=== PATIENT | female | born 1990 | race Caucasian/White ===

== ENCOUNTER 2021-06-27 11:20 | Outpatient (REF) | payer OTHER, SELFPAY ==
[2021-06-28 14:25] LABS: BV Int Neg Control Negative (Negative); BV Int Pos Control Positive (Positive)
[2021-06-28 14:59] LABS: CT PCR NOT DETECTED (Not Detect.); NG PCR NOT DETECTED (Not Detect.)
== END 2021-06-27 11:21 | disposition home or self-care (01) ==
LOC: HO.LAB 11:20
PROVIDERS: PCP Internal Medicine; Visit Provider Advanced Practice Midwife
DX: N92.0 Excessive and frequent menstruation with regular cycle (principal); N91.1 Secondary amenorrhea; N83.9 Noninflammatory disorder of ovary, fallopian tube and broad ligament, unspecified; E66.01 Morbid (severe) obesity due to excess calories; Z68.35 Body mass index [BMI] 35.0-35.9, adult; Z87.42 Personal history of other diseases of the female genital tract
CPT/HCPCS: 81025; 87086; 87480; 87491; 87510; 87591; 87660

== ENCOUNTER 2021-07-01 12:07 | Outpatient (REF) | payer OTHER, SELFPAY ==
[2021-07-02 03:44] LABS: Syphilis Screen Nonreactive (Nonreactive)
[2021-07-02 03:48] LABS: HIV AB/AG Nonreactive (Nonreactive); HIV Num 1 0.08 S/CO (0.00-0.99)
[2021-07-02 04:01] LABS: HBsAGNum1 0.21 S/CO (0.00-0.99); Hepatitis B Surface Antigen Negative (Negative); ~HepC Num1 0.07 S/CO (0.00-0.79); ~Hepatitis C Antibody Nonreactive (Nonreactive)
== END 2021-07-01 12:08 | disposition home or self-care (01) ==
LOC: HO.LAB 12:07
PROVIDERS: PCP Internal Medicine; Visit Provider Advanced Practice Midwife
DX: Z20.2 Contact with and (suspected) exposure to infections with a predominantly sexual mode of transmission (principal)
CPT/HCPCS: 36415; 86780; 86803; 87340; 87389

== ENCOUNTER 2021-07-11 15:44 | Outpatient (REF) | payer OTHER, SELFPAY ==
--- NOTE | ~2021-07-11 | US_ITS ---
EXAMINATION: US PELVIS CLINICAL INFORMATION: Amenorrhea, menorrhagia. History of PCOS. COMPARISON: Ultrasound 03/13/2019. TECHNIQUE: Ultrasound of the pelvis is performed using both transabdominal and transvaginal transducers along with Doppler. Transvaginal imaging is performed due to inadequate visualization transabdominally. FINDINGS: Uterus: The uterus is retroverted and measures 8.7 cm in length, 3.8 cm in AP and 5.0 cm in transverse dimension. The double wall endometrial thickness is ill-defined but measures 1.9 cm. The uterus is smooth in contour and has normal myometrial echogenicity. No visible fibroid. There are small multiple nabothian cysts in the cervix. Adnexa: Both ovaries are visualized. There is normal color flow to the adnexa. There is no ovarian torsion. There is no pelvic ascites or fluid collection. Right ovary measures 4.1 x 2.4 x 3.0 cm and volume 15.6 mL. There are multiple small anechoic cysts seen. Previously right ovary measured 3.0 x 2.7 x 2.6 cm. No adnexal lesions seen. Left ovary measures 3.2 x 2.5 x 2.5 cm and volume 10.2 mL. There are multiple small anechoic cysts seen. Previously left ovary measured 3.4 x 2.6 x 3.1 cm. US/US pelvic and transvaginal IMPRESSION: Multiple nabothian cysts in the cervix. The uterus is unremarkable. There is ill-defined endometrial thickness of 1.9 cm; still normal for patient's age. Multiple small anechoic cysts, question polycystic disease. There is no free fluid in the cul-de-sac.
== END 2021-07-11 15:45 | disposition home or self-care (01) ==
LOC: HO.HMGCX 15:44
PROVIDERS: Visit Provider Advanced Practice Midwife
DX: N92.0 Excessive and frequent menstruation with regular cycle (principal); N91.1 Secondary amenorrhea; N83.9 Noninflammatory disorder of ovary, fallopian tube and broad ligament, unspecified; E66.01 Morbid (severe) obesity due to excess calories; Z68.35 Body mass index [BMI] 35.0-35.9, adult; Z87.42 Personal history of other diseases of the female genital tract
CPT/HCPCS: 76830; 76856

== ENCOUNTER 2021-07-14 09:33 | Outpatient (REF) | payer OTHER, SELFPAY ==
[2021-07-14 20:19] LABS: CT PCR NOT DETECTED (Not Detect.); NG PCR NOT DETECTED (Not Detect.)
[2021-07-15 09:44] LABS: BV Int Neg Control Negative (Negative); BV Int Pos Control Positive (Positive)
[2021-07-17 01:46] LABS: HPV mRNA E6/E7 rflx Not Detected (Not Detected)
== END 2021-07-14 09:34 | disposition home or self-care (01) ==
LOC: HO.LAB 09:33
PROVIDERS: PCP Internal Medicine; Visit Provider Advanced Practice Midwife
DX: Z01.411 Encounter for gynecological examination (general) (routine) with abnormal findings (principal); Z11.51 Encounter for screening for human papillomavirus (HPV); N91.1 Secondary amenorrhea; N83.9 Noninflammatory disorder of ovary, fallopian tube and broad ligament, unspecified; E66.9 Obesity, unspecified; Z20.2 Contact with and (suspected) exposure to infections with a predominantly sexual mode of transmission; Z87.42 Personal history of other diseases of the female genital tract
CPT/HCPCS: 87480; 87491; 87510; 87591; 87624; 87660; 88142

== ENCOUNTER 2021-07-15 09:17 | Outpatient (REF) | payer OTHER, SELFPAY ==
[2021-07-15 11:33] LABS: MANUAL DIFF FLAG NO
[2021-07-15 11:53] LABS: Basophils Percent Auto 0.2 % (0-2); Eosinophils Percent Auto 0.5 % (0-4); Hemoglobin 14.3 g/dl (12.0-16.0); Imm Gran Abs Auto 0.02 X10*3/uL (0.00-0.03); Imm Gran Pct Auto 0.3 % (0.0-0.4); Lymphocytes Absolute Auto 1.3 X10*3/uL (1.2-4.9); Lymphocytes Percent Auto 19.5 % (20-40); Mean Corpuscular HGB Conc 32.5 g/dl (31.0-35.0); Mean Corpuscular Hemoglobin 30.7 pg (27.0-33.0); Mean Corpuscular Volume 94.4 fL (80.0-98.0); Mean Platelet Volume 9.3 fL (9.4-12.3); Monocytes Absolute Auto 0.3 X10*3/uL (0.1-1.2); Neutrophils Absolute Auto 4.9 x10*3/uL (2.0-8.3); Neutrophils Percent Auto 74.5 % (45-73); Platelet Count 235 X10*3/uL (160-400); Red Blood Count 4.66 X10*6/uL (4.20-5.50); Red Cell Distribution Width 12.5 % (11.0-16.0); White Blood Count 6.6 X10*3/uL (4.8-10.8)
[2021-07-15 11:55] LABS: Estimated Average Glucose 103 mg/dL; Hemoglobin A1c % 5.2 %
[2021-07-15 12:13] LABS: Alanine Aminotransferase 40 U/L (0-31); Albumin Level 4.5 g/dL (3.5-5.0); Alkaline Phosphatase 73 U/L (39-117); Anion Gap 13 (12-20); Aspartate Amino Transferase 23 U/L (5-31); Bilirubin Total 0.5 mg/dL (0.0-1.0); Blood Urea Nitrogen 13 mg/dL (9-16); Calcium 9.4 mg/dL (8.4-10.2); Carbon Dioxide 27 mmol/L (22-29); Chloride 103 mmol/L (96-108); Cholesterol 165 mg/dL; Estimated Glomerular Filt Rate > 60; Glucose Fasting 101 mg/dL (60-99); HDL Cholesterol 38 mg/dL; LDL Cholesterol Calculated 113 mg/dl; Potassium 3.8 mmol/L (3.3-5.1); Sodium 139 mmol/L (135-145); Total Protein 7.3 g/dL (6.5-8.0); Triglycerides 74 mg/dL
== END 2021-07-15 09:18 | disposition home or self-care (01) ==
LOC: HO.HMGCLDS 09:17
PROVIDERS: PCP Internal Medicine; Visit Provider Internal Medicine
DX: Z00.01 Encounter for general adult medical examination with abnormal findings (principal); E66.9 Obesity, unspecified; E28.2 Polycystic ovarian syndrome
CPT/HCPCS: 36415; 80053; 80061; 83036; 84443; 85025

== ENCOUNTER → 2021-08-21 11:04 | Outpatient (BNVA) | payer OTHER, SELFPAY | PROVIDERS: Visit Provider Advanced Practice Midwife | DX: Z13.89 Encounter for screening for other disorder (principal) ==

== ENCOUNTER 2021-09-08 10:41 | Outpatient (REF) | payer OTHER, SELFPAY | END 2021-09-08 10:42 | disposition home or self-care (01) | LOC: HO.LAB 10:41 | PROVIDERS: PCP Internal Medicine; Visit Provider Advanced Practice Midwife | DX: R93.89 Abnormal findings on diagnostic imaging of other specified body structures (principal); N91.1 Secondary amenorrhea; N83.9 Noninflammatory disorder of ovary, fallopian tube and broad ligament, unspecified | CPT/HCPCS: 58100; 81025; 88305 ==

== ENCOUNTER 2022-03-04 13:27 | Outpatient (REF) | payer OTHER, SELFPAY | END 2022-03-04 13:28 | disposition home or self-care (01) | LOC: HO.LNP 13:27 | PROVIDERS: Visit Provider Advanced Practice Midwife | DX: R93.89 Abnormal findings on diagnostic imaging of other specified body structures (principal); E28.2 Polycystic ovarian syndrome; N93.9 Abnormal uterine and vaginal bleeding, unspecified; Z87.42 Personal history of other diseases of the female genital tract | CPT/HCPCS: 58100; 81025; 88305 ==

== ENCOUNTER 2022-05-30 14:22 | Outpatient (REF) | payer OTHER, SELFPAY ==
--- NOTE | ~2022-05-30 | XR_ITS ---
EXAMINATION: XR hand wrist RT CLINICAL INFORMATION: Reason for Exam S63.509A - Unspecified sprain of unspecified wrist, initial encounter COMPARISON: None. TECHNIQUE: 3 views right hand, scaphoid view right wrist FINDINGS: No acute fracture or dislocation. The joint spaces throughout the hand and wrist are maintained. No osteophytes or erosions. XR/XR hand wrist RT IMPRESSION: No acute osseous injury.
== END 2022-05-30 14:23 | disposition home or self-care (01) ==
LOC: HO.HMGCX 14:22
PROVIDERS: PCP Internal Medicine; Visit Provider Physician Assistant Medical
DX: S63.501A Unspecified sprain of right wrist, initial encounter (principal); Z91.81 History of falling
CPT/HCPCS: 73110; 73130

== ENCOUNTER → 2022-06-16 10:06 | Outpatient (BNVA) | payer OTHER, SELFPAY | PROVIDERS: PCP Internal Medicine; Visit Provider Physician Assistant | DX: S63.501A Unspecified sprain of right wrist, initial encounter (principal) | CPT/HCPCS: 99202 ==

== ENCOUNTER 2024-02-29 10:06 | Outpatient (AMB) | payer MEDICAID, SELFPAY ==
[2024-02-29 10:07] VITALS: BP 122/76; PULSE 96; O2SAT 97; BMI 31.8
--- NOTE | 2024-02-29 10:07 | MHC.PC.OV ---
Vital Signs 02/29/24 10:07 Height 5 ft 3 in Weight 179 lb 6 oz BMI 31.8 BP 122/76 Blood Pressure Location Rt brachial Position Sitting Pulse 96 Pulse Source Pulse Oximeter Pulse Oximetry (%) 97 Oxygen Delivery Method Room Air Intake Visit Reasons: Regular Visit Allergies mold Adverse Reaction (Severe, Verified 02/29/24 10:13) Rash Medication List - Last Reconciled 02/29/24 by Kevan Spivey MD ibuprofen 800 mg PO Q8H PRN Tobacco use date assessed: 02/29/24 Dental Screening Dental Screen Date: 02/29/24 Did you have a dental visit in the last 12 months?: Yes Did you have a dental problem in the last 6 months where you did not have access to dental care?: No Was dental information given to patient?: Patient has dentist HPI Regular Visit HPI Details Patient is a 33-year-old female came in today for physical examination Patient says that she was living with her mother for the past six-month Two months ago she started having feeling of tightness in her throat And then the rash started to appear She figure out that there is a lot of mold in that residence She has recently moved in with her uncle and her rash has cleared But she still have the feeling of constantly clearing her throat and feels tight off and on BMI is elevated, patient is trying lose weight Dietary consultation offer to patient Last set of lab was July of 2021 Fasting sugar was slightly elevated OBGYN: Patient has OBGYN and is up-to-date New set of order placed to be done fasting I am treating her with short course of prednisone Inhaler sent with steroid in it Long-acting antihistamine to be started Follow-up few days [facility] Medical History PCOS (polycystic ovarian syndrome) Obesity Encounter for general adult medical examination with abnormal findings Diabetes Surgical History No pertinent past surgical history Family History Father No problems noted. Mother Diabetes mellitus Maternal Grandfather No problems noted. Maternal Grandmother Uterine cancer Paternal Grandfather Diabetes mellitus Paternal Grandmother No problems noted. Maternal Aunt Ovarian cancer Brother No problems noted. Brother No problems noted. Brother No problems noted. Son No problems noted. Other Mental health disorder Substance use disorder Social History Housing: Apartment Patient Tobacco Use Status: Current everyday Tobacco user Cigarette Packs Per Day: 0.5 Cigarettes Per Day: 6 e-Cigarette/Vaping Use: Never Used Current occupational status: employed Current occupation: [employer] Cognitive needs: No Hearing needs: No Vision needs: No Female Reproductive History Menstrual Age of Menarche: 14 Questionnaire PHQ-9 Over the last 2 weeks, how often have you been bothered by any of the following problems? 1. Little interest or pleasure in doing things: not at all 2. Feeling down, depressed, or hopeless: not at all 3. Trouble falling or staying asleep, or sleeping too much: several days 4. Feeling tired or having little energy: not at all 5. Poor appetite or overeating: several days 6. Feeling bad about yourself - or that you are a failure or have let yourself or your family down: not at all 7. Trouble concentrating on things, such as reading the newspaper or watching television: not at all 8. Moving or speaking so slowly that other people could have noticed. Or the opposite - being so fidgety or restless that you have been moving around a lot more than usual: not at all 9. Thoughts that you would be better off or of hurting yourself in some way: not at all Total score: 2 Depression Screening Interpretation: Negative Depression Screening Done: Yes 97324 - PHQ-9 Billing: Yes Source: Developed by Drs. Juan Diego Dumont, Caterina Olsen, Aubrey Pinon and colleagues, with an educational valarie from [employer]. Thrive Questionnaire Date Thrive assessed: 02/29/24 I am a: Patient What is your living situation today?: I have a steady place to live Within the past 12 months, did the food you bought not last and you didn't have the money to get more?: I choose not to answer this question Within the past 12 months, did you worry whether your food would run out before you got money to buy more?: I choose not to answer this question Do you have trouble paying for medicines?: I choose not to answer this question Do you have trouble getting transportation to medical appointments?: I choose not to answer this question Do you have trouble paying your heating and electricity bill?: I choose not to answer this question Do you have trouble taking care of your child, family member or friend?: No Do you have trouble with day-to-day activities such as bathing, preparing meals, shopping, managing finances, etc.?: No Are you currently unemployed and looking for a job?: No Are you interested in more education?: No Please select the resources that you would like help with: None Currently or been in a relationship where the following occur: No concerns reported THRIVE Score: 0 AUDIT C Alcohol Use Questionnaire (AUDIT-C) 1. How often do you have a drink containing alcohol?: Monthly or less 2. How many drinks containing alcohol do you have on a typical day when you are drinking?: 1 or 2 3. How often do you have six or more drinks on one occasion?: Less than monthly Total Score: 2 Score Reviewed/Action Taken: Yes SENIA-7 AMB Questionnaire SENIA-7 Date SENIA - 7 assessed: 02/29/24 Feeling nervous, anxious, or on edge: 0 = Not at all Not being able to stop or control worryin = Not at all Worrying too much about different things: 0 = Not at all Trouble relaxin = Not at all Being so restless that it is hard to sit still: 0 = Not at all Becoming easily annoyed or irritable: 1 = Several days Feeling afraid as if something awful might happen: 0 = Not at all Total SENIA-7 score (0-4 normal; 5-9 mild; 10-14 moderate; 15-21 severe): 1 Source: Developed by Drs. Juan Diego Dumont, Caterina Olsen, Aubrey Pinon and colleagues, with an educational valarie from [employer]. SENIA-7 Assessment Billing SENIA-7 Assessment Tool: SENIA-7 Assessment 17757 Review of Systems Const Denies chills, Denies fever(s) and Denies headache(s) Eyes Denies blurry vision ENT Denies headache(s), Denies nasal discharge, Denies nasal obstruction, Denies odynophagia and Denies sinus pain Card Denies chest pain at rest and Denies chest pain with activity Resp Denies hemoptysis GI Denies diarrhea, Denies odynophagia, Denies vomiting and Denies hematemesis Reports as per HPI Musc Denies abnormal gait Skin/Breast Reports as per HPI Neuro Denies Neuro-related abnormal movements, Denies Abnormal speech present, Denies abnormal gait, Denies headache(s) and Denies Sensory deficit (Neuro) Psych Denies mood swings and Denies paranoia Endo Reports as per HPI Ryland/Lymph Reports as per HPI Aller/Immun Reports as per HPI Physical exam (Primary Care) Vital Signs: Last Vital Signs Pulse 96 02/29/24 10:07 BP 122/76 02/29/24 10:07 Pulse Ox 97 02/29/24 10:07 Oxygen Delivery Method Room Air 02/29/24 10:07 BMI result Body Mass Index 31.8 Tobacco/Smoking Status: Tobacco use Status Tobacco use date assessed 02/29/24 02/29/24 10:08 Patient Tobacco Use Status Current everyday Tobacco 02/29/24 10:08 e-Cigarette/Vaping Use Never Used 02/29/24 10:08 PHQ-9: PHQ-9 Score PHQ-9: Total score 2 02/29/24 10:16 Depression Screening Interpretation: Negative Thrive Assessment: Date of Thrive Assessment Date Thrive assessed 02/29/24 02/29/24 10:11 Currently or been in a relationship where the following occur: No concerns reported Const General: cooperative, comfortable and no acute distress Orientation/consciousness: patient oriented x3 HENMT Head: Yes normocephalic and Yes atraumatic Eyes General: appearance normal, both eyes and all related structures Pupils: Equal, round and reactive pupils present EOM: EOMs intact bilaterally Neck Neck: Yes supple and No lymphadenopathy Thyroid: Thyroid normal Lymphatic: no lymphadenopathy noted Resp Effort & Inspection: normal respiratory effort and able to speak in complete sentences Auscultation: clear to auscultation bilaterally Cardio Heart sounds: S1 normal heart sound present and S2 normal heart sound present GI Palpation (GI): Soft to palpation and nontender Auscultation: normal bowel sounds General: Yes no CVA tenderness Back/Spine/Pelvis Back: no CVA tenderness Skin General skin exam: elasticity normal and turgor normal Neuro General: patient oriented x3 and gait normal Cranial nerves: Yes Equal, round and reactive pupils present Speech: No Abnormal speech present Sensory Exam: No Sensory deficit (Neuro) Coordination: tandem gait normal and Romberg test negative Extrem General: Yes normal exam except as noted and No edema Coding Level of Care Code Est Pt Level 4 (79914) Est Pt Prev Care 18-39y(19305) Diagnoses Encounter for general adult medical examination with abnormal findings Z00.01 Allergy to mold Z91.048 Pre-diabetes R73.03 Throat tightness R09.89 Obesity (BMI 30.0-34.9) E66.9 Additional Codes SENIA-7 Assessment Billing - SENIA-7 Assessment Tool: SENIA-7 Assessment 14080 ([id number]) Assessment & Plan Assessment & Plan (1) Encounter for general adult medical examination with abnormal findings: Code(s): Z00.01 - Encounter for general adult medical examination with abnormal findings Category: Medical (2) Allergy to mold: Code(s): Z91.048 - Other nonmedicinal substance allergy status Category: Medical (3) Pre-diabetes: Code(s): R73.03 - Prediabetes Category: Medical (4) Throat tightness: Code(s): R09.89 - Other specified symptoms and signs involving the circulatory and respiratory systems Category: Medical (5) Obesity (BMI 30.0-34.9): Code(s): E66.9 - Obesity, unspecified Category: Medical Plan Patient is a 33-year-old female came in today for physical examination Patient says that she was living with her mother for the past six-month Two months ago she started having feeling of tightness in her throat And then the rash started to appear She figure out that there is a lot of mold in that residence She has recently moved in with her uncle and her rash has cleared But she still have the feeling of constantly clearing her throat and feels tight off and on BMI is elevated, patient is trying lose weight Dietary consultation offer to patient Last set of lab was July of 2021 Fasting sugar was slightly elevated OBGYN: Patient has OBGYN and is up-to-date New set of order placed to be done fasting I am treating her with short course of prednisone Inhaler sent with steroid in it Long-acting antihistamine to be started Follow-up few days Orders: Orders Complete Blood Count Auto Diff Today E66.9 - Obesity, unspecified, R09.89 - Other specified symptoms and signs involving the circulatory and respiratory systems, R73.03 - Prediabetes, Z00.01 - Encounter for general adult medical examination with abnormal findings, Z91.048 - Other nonmedicinal substance allergy status Comprehensive Lena. Panel Fast Today E66.9 - Obesity, unspecified, R09.89 - Other specified symptoms and signs involving the circulatory and respiratory systems, R73.03 - Prediabetes, Z00.01 - Encounter for general adult medical examination with abnormal findings, Z91.048 - Other nonmedicinal substance allergy status Lipid Panel Today E66.9 - Obesity, unspecified, R09.89 - Other specified symptoms and signs involving the circulatory and respiratory systems, R73.03 - Prediabetes, Z00.01 - Encounter for general adult medical examination with abnormal findings, Z91.048 - Other nonmedicinal substance allergy status Vitamin D 25-OH (D2 and D3) Today E66.9 - Obesity, unspecified, R09.89 - Other specified symptoms and signs involving the circulatory and respiratory systems, R73.03 - Prediabetes, Z00.01 - Encounter for general adult medical examination with abnormal findings, Z91.048 - Other nonmedicinal substance allergy status TSH reflex Free T4 Today E66.9 - Obesity, unspecified, R09.89 - Other specified symptoms and signs involving the circulatory and respiratory systems, R73.03 - Prediabetes, Z00.01 - Encounter for general adult medical examination with abnormal findings, Z91.048 - Other nonmedicinal substance allergy status Hemoglobin A1c Today E66.9 - Obesity, unspecified, R09.89 - Other specified symptoms and signs involving the circulatory and respiratory systems, R73.03 - Prediabetes, Z00.01 - Encounter for general adult medical examination with abnormal findings, Z91.048 - Other nonmedicinal substance allergy status Rast Allergen Today E66.9 - Obesity, unspecified, R09.89 - Other specified symptoms and signs involving the circulatory and respiratory systems, R73.03 - Prediabetes, Z00.01 - Encounter for general adult medical examination with abnormal findings, Z91.048 - Other nonmedicinal substance allergy status Medications: New prednisone 20 mg PO DAILY 5 tabs 0RF 5 days fluticasone propion-salmeterol 250-50 mcg/dose (Advair Diskus) 1 inh inhalation BID 60 ea 0RF cetirizine (Allergy Relief (cetirizine)) 10 mg PO DAILY PRN 90 caps 0RF allergy symptoms
== END 2024-02-29 11:40 | disposition home or self-care (01) ==
PROVIDERS: PCP Internal Medicine; Visit Provider Internal Medicine
DX: Z00.00 Encounter for general adult medical examination without abnormal findings (principal); R73.03 Prediabetes; Z91.048 Other nonmedicinal substance allergy status; E66.811 Obesity, class 1; Z68.31 Body mass index [BMI] 31.0-31.9, adult; R09.89 Other specified symptoms and signs involving the circulatory and respiratory systems

== ENCOUNTER → 2024-02-29 10:06 | Outpatient (BNVA) | payer SELFPAY | PROVIDERS: PCP Internal Medicine; Visit Provider Internal Medicine | DX: Z00.01 Encounter for general adult medical examination with abnormal findings (principal); R73.03 Prediabetes; R09.89 Other specified symptoms and signs involving the circulatory and respiratory systems; E66.9 Obesity, unspecified; Z68.31 Body mass index [BMI] 31.0-31.9, adult; Z91.048 Other nonmedicinal substance allergy status | CPT/HCPCS: 96127; 99212; 99395 ==

== ENCOUNTER 2024-03-22 08:19 | Outpatient (REF) | payer MEDICAID, SELFPAY ==
[2024-03-22 10:07] LABS: MANUAL DIFF FLAG NO
[2024-03-22 10:17] LABS: Basophils Percent Auto 0.2 % (0-2); Eosinophils Absolute Auto 0.1 X10*3/uL (0.0-0.4); Eosinophils Percent Auto 2.2 % (0-4); Hematocrit 41.5 % (37.0-47.0); Hemoglobin 13.5 g/dl (12.0-16.0); Imm Gran Abs Auto 0.01 X10*3/uL (0.00-0.03); Imm Gran Pct Auto 0.2 % (0.0-0.4); Lymphocytes Absolute Auto 1.5 X10*3/uL (1.2-4.9); Lymphocytes Percent Auto 29.4 % (20-40); Mean Corpuscular HGB Conc 32.5 g/dl (31.0-35.0); Mean Corpuscular Hemoglobin 29.4 pg (27.0-33.0); Mean Corpuscular Volume 90.4 fL (80.0-98.0); Mean Platelet Volume 9.2 fL (9.4-12.3); Monocytes Absolute Auto 0.4 X10*3/uL (0.1-1.2); Monocytes Percent Auto 8.5 % (2-11); Neutrophils Percent Auto 59.5 % (45-73); Platelet Count 215 X10*3/uL (160-400); Red Blood Count 4.59 X10*6/uL (4.20-5.50); Red Cell Distribution Width 13.8 % (11.0-16.0); White Blood Count 5.1 X10*3/uL (4.8-10.8)
[2024-03-22 10:28] LABS: Estimated Average Glucose 100 mg/dL; Hemoglobin A1C 115.2588 umol/L; Hemoglobin A1c % 5.1 % (<6.0); Total Hemoglobin (HGBA1C) 3570.1172 umol/L
[2024-03-22 10:32] LABS: Alanine Aminotransferase 35 U/L (0-31); Albumin Level 4.2 g/dL (3.5-5.0); Alkaline Phosphatase 70 U/L (39-117); Anion Gap 12 (12-20); Aspartate Amino Transferase 33 U/L (5-31); Bilirubin Total 0.3 mg/dL (0.0-1.0); Blood Urea Nitrogen 13 mg/dL (9-16); Calcium 9.2 mg/dL (8.4-10.2); Carbon Dioxide 26 mmol/L (22-29); Chloride 106 mmol/L (96-108); Cholesterol 171 mg/dL (<200); Estimated Glomerular Filt Rate > 60; Glucose Fasting 96 mg/dL (60-99); HDL Cholesterol 43 mg/dL (>40); LDL Cholesterol Calculated 114 mg/dL (<100); Potassium 4.1 mmol/L (3.3-5.1); Sodium 140 mmol/L (135-145); Total Protein 7.3 g/dL (6.5-8.0); Triglycerides 72 mg/dL (<150)
[2024-03-22 10:50] LABS: TSH reflex Free T4 1.37 uIU/mL (0.32-4.0)
[2024-03-26 17:49] LABS: Vitamin D 25-OH, D2 <4 ng/mL; Vitamin D 25-OH, D3 14 ng/mL; Vitamin D 25-OH, Total 14 ng/mL (30-100)
== END 2024-03-22 08:20 | disposition home or self-care (01) ==
LOC: HO.HMGCLDS 08:19
PROVIDERS: Visit Provider Internal Medicine
DX: Z00.01 Encounter for general adult medical examination with abnormal findings (principal); R09.89 Other specified symptoms and signs involving the circulatory and respiratory systems; Z91.048 Other nonmedicinal substance allergy status; R73.03 Prediabetes; E66.9 Obesity, unspecified
CPT/HCPCS: 36415; 80053; 80061; 82306; 83036; 84443; 85025; 86003

== ENCOUNTER 2024-04-05 10:37 | Outpatient (AMB) | payer MEDICAID, SELFPAY ==
--- NOTE | 2024-04-05 10:41 | A.OFFPC_ITS ---
Vital Signs 04/05/24 10:42 Height 5 ft 3 in Weight 174 lb 3 oz BMI 30.9 BP 122/74 Blood Pressure Location Lt brachial Position Sitting Pulse 92 Pulse Source Pulse Oximeter Pulse Oximetry (%) 98 Oxygen Delivery Method Room Air Intake Visit Reasons: 1 month follow up Allergies mold Adverse Reaction (Severe, Verified 04/05/24 10:42) Rash Medication List - Last Reconciled 04/05/24 by Kevan Spivey MD cetirizine (Allergy Relief (cetirizine)) 10 mg PO DAILY PRN fluticasone propion-salmeterol 250-50 mcg/dose (Advair Diskus) 1 inh inhalation BID ibuprofen 800 mg PO Q8H PRN Tobacco use date assessed: 04/05/24 Dental Screening Dental Screen Date: 04/05/24 Did you have a dental visit in the last 12 months?: Yes Did you have a dental problem in the last 6 months where you did not have access to dental care?: No Was dental information given to patient?: Patient has dentist HPI 1 month follow up HPI Details The patient is a 33-year-old female presenting with asthma management and assessment of musculoskeletal pain. The patient reports a history of asthma , prednisone prescription that was given to patient at last visit caused improvement in symptoms such as airway inflammation and breathing difficulties. The patient noted musculoskeletal pain, primarily on the sides, associated with repetitive motion from a previous job. Symptoms of pain decreased significantly while on prednisone but have returned with the discontinuation of the medication. Additionally, she suffers from allergic rhinitis, with symptoms exacerbated by allergies, which are partially controlled by cetirizine. A previous allergy test conducted ten years ago showed allergy to mold, but she has noted allergic reactions to certain foods like pistachios . Vitamin D deficiency was also identified, prescription sent Liver function tests have consistently shown slightly elevated liver enzymes, attributed to fatty liver, though there's no current abdominal pain related to the liver. She has a history of PCOS, which causes occasional abdominal pain lower part. The patient also reported using an inhaler inconsistently, impacting the control of her asthma. Tobacco use via vaping and Bidi consumption; smoking 3 cigarettes daily. Most likely contributing to her throat irritation Labs Labs: Slightly elevated liver enzymes. - Previous fasting blood glucose: 101 in 2021, current level: 96. Plan Asthma and Inconsistent Inhaler Use: Continue with current inhaler, place near toothbrush as a reminder. Evaluate frequency and symptoms in the follow-up visit. Musculoskeletal Pain: Ibuprofen 400 mg prescribed as needed with food for musculoskeletal discomfort. Which was initially prescribed by OBGYN for PCOS pain Allergic Rhinitis: Advice to complete another round of allergy testing with an emphasis on skin tests. Vitamin D Deficiency: Begin vitamin D supplementation daily. Elevated Liver Enzymes: Reassess liver function tests regularly. Consider an ultrasound if enzyme levels increase. Tobacco Use: Encourage cessation of vaping and Bidi usage, particularly due to throat irritation. Prediabetes: Maintain diet and exercise regime to prevent escalation to diabetes. Monitor glucose levels periodically. Lose weight PCOS: Continue monitoring for symptom management. Patient's instruction Use the inhaler consistently; keep it near your toothbrush. - Take vitamin D supplements daily as pr escribed. - Use ibuprofen 400 mg with food as need ed for pain. - Schedule allergy testing, particularly a skin test. Referral to store stocker placed - Abstain from vaping and Bidi to allevi ate throat discomfort. - Continue regular exercise and maintain a balanced diet. - Return for a follow-up appointment in six months for reassessment. Discussion I discussed the management plans for asthma, emphasizing consistent use of the inhaler and incorporating the use of cetirizine to manage allergic symptoms. I explained the importance of continuing vitamin D supplementation due to deficiency. We reviewed the liver enzyme elevations, attributing these to possible fatty liver, but reassured the patient of the stability of these results. The need for further allergy testing, especially a skin test, was emphasized to clarify chronic allergic rhinitis triggers. For musculoskeletal pain, I recommended ibuprofen, highlighting the necessity of concurrent food intake to prevent gastrointestinal upset. And take it only if absolutely necessary. We also addressed cessation of vaping and use of Bidis to help reduce throat discomfort, suggesting it may be exacerbating throat irritation. I advised regular physical activity and maintaining a healthy diet to manage weight and glucose levels, given the history of prediabetes. [facility] Medical History PCOS (polycystic ovarian syndrome) Obesity Encounter for general adult medical examination with abnormal findings Diabetes Surgical History No pertinent past surgical history Family History Father No problems noted. Mother Diabetes mellitus Maternal Grandfather No problems noted. Maternal Grandmother Uterine cancer Paternal Grandfather Diabetes mellitus Paternal Grandmother No problems noted. Maternal Aunt Ovarian cancer Brother No problems noted. Brother No problems noted. Brother No problems noted. Son No problems noted. Other Mental health disorder Substance use disorder Social History Housing: Apartment Patient Tobacco Use Status: Current everyday Tobacco user Cigarette Packs Per Day: 0.5 Cigarettes Per Day: 6 e-Cigarette/Vaping Use: Never Used Current occupational status: employed Current occupation: [email or web address] Cognitive needs: No Hearing needs: No Vision needs: No Female Reproductive History Menstrual Age of Menarche: 14 Questionnaire Thrive Questionnaire Date Thrive assessed: 02/29/24 I am a: Patient What is your living situation today?: I have a steady place to live Within the past 12 months, did the food you bought not last and you didn't have the money to get more?: I choose not to answer this question Within the past 12 months, did you worry whether your food would run out before you got money to buy more?: I choose not to answer this question Do you have trouble paying for medicines?: I choose not to answer this question Do you have trouble getting transportation to medical appointments?: I choose not to answer this question Do you have trouble paying your heating and electricity bill?: I choose not to answer this question Do you have trouble taking care of your child, family member or friend?: No Do you have trouble with day-to-day activities such as bathing, preparing meals, shopping, managing finances, etc.?: No Are you currently unemployed and looking for a job?: Yes Are you interested in more education?: No Please select the resources that you would like help with: None Currently or been in a relationship where the following occur: No concerns reported THRIVE Score: 0 SENIA-7 AMB Questionnaire SENIA-7 Date SENIA - 7 assessed: 02/29/24 Source: Developed by Drs. Juan Diego Dumont, Caterina Olsen, Aubrey Pinon and colleagues, with an educational valarie from [employer]. Review of Systems Const Denies chills and Denies fever(s) ENT Denies epistaxis Card Denies chest pain Resp Denies chest congestion, Denies cough and Denies hemoptysis GI Denies diarrhea and Denies nausea Skin/Breast Denies rash Neuro Reports no additional complaints Psych Reports no additional complaints Endo Reports no additional complaints Physical exam (Primary Care) Vital Signs: Last Vital Signs Pulse 92 04/05/24 10:42 BP 122/74 04/05/24 10:42 Pulse Ox 98 04/05/24 10:42 Oxygen Delivery Method Room Air 04/05/24 10:42 BMI result Body Mass Index 30.9 Tobacco/Smoking Status: Tobacco use Status Tobacco use date assessed 04/05/24 04/05/24 10:43 Patient Tobacco Use Status Current everyday Tobacco 04/05/24 10:43 e-Cigarette/Vaping Use Never Used 04/05/24 10:43 Thrive Assessment: Date of Thrive Assessment Date Thrive assessed 02/29/24 04/05/24 10:43 Currently or been in a relationship where the following occur: No concerns reported Const General: cooperative, comfortable and no acute distress Orientation/consciousness: patient oriented x3 HENMT Head: Yes normocephalic Eyes General: appearance normal, both eyes and all related structures Neck Neck: Yes supple Resp Effort & Inspection: normal respiratory effort, no cough and no stridor Cardio Rhythm: regular rhythm Heart sounds: S1 normal heart sound present and S2 normal heart sound present Skin General skin exam: turgor normal Neuro General: patient oriented x3, tone normal and moves all extremities Extrem Right lower extremity: no edema Left lower extremity: no edema Coding Level of Care Code Est Pt Level 5 (82788) Complex EM visit Add On G2211 Diagnoses Throat tightness R09.89 Environmental allergies Z91.09 LFT elevation R79.89 Pre-diabetes R73.03 PCOS (polycystic ovarian syndrome) E28.2 Obesity (BMI 30.0-34.9) E66.9 Tobacco use Z72.0 Assessment & Plan Assessment & Plan (1) Throat tightness: Code(s): R09.89 - Other specified symptoms and signs involving the circulatory and respiratory systems Category: Medical (2) Environmental allergies: Code(s): Z91.09 - Other allergy status, other than to drugs and biological substances Category: Medical (3) LFT elevation: Code(s): R79.89 - Other specified abnormal findings of blood chemistry Category: Medical (4) Pre-diabetes: Code(s): R73.03 - Prediabetes Category: Medical (5) PCOS (polycystic ovarian syndrome): Code(s): E28.2 - Polycystic ovarian syndrome Category: Medical (6) Obesity (BMI 30.0-34.9): Code(s): E66.9 - Obesity, unspecified Category: Medical (7) Tobacco use: Code(s): Z72.0 - Tobacco use Category: Social Hx Plan The patient is a 33-year-old female presenting with asthma management and assessment of musculoskeletal pain. The patient reports a history of asthma , prednisone prescription that was given to patient at last visit caused improvement in symptoms such as airway inflammation and breathing difficulties. The patient noted musculoskeletal pain, primarily on the sides, associated with repetitive motion from a previous job. Symptoms of pain decreased significantly while on prednisone but have returned with the discontinuation of the medication. Additionally, she suffers from allergic rhinitis, with symptoms exacerbated by a llergies, which are partially controlled by cetirizine. A previous allergy test conducted ten years ago showed allergy to mold, but she has noted allergic reactions to certain foods like pistachios . Vitamin D deficiency was also identified, prescription sent Liver function tests have consistently shown slightly elevated liver enzymes, attributed to fatty liver, though there's no current abdominal pain related to the liver. She has a history of PCOS, which causes occasional abdominal pain lower part. The patient also reported using an inhaler inconsistently, impacting the control of her asthma. Tobacco use via vaping and Bidi consumption; smoking 3 cigarettes daily. Most likely contributing to her throat irritation Labs Labs: Slightly elevated liver enzymes. - Previous fasting blood glucose: 101 in 2021, current level: 96. Plan Asthma and Inconsistent Inhaler Use: Continue with current inhaler, place near toothbrush as a reminder. Evaluate frequency and symptoms in the follow-up visit. Musculoskeletal Pain: Ibuprofen 400 mg prescribed as needed with food for musculoskeletal discomfort. Which was initially prescribed by OBGYN for PCOS pain Allergic Rhinitis: Advice to complete another round of allergy testing with an emphasis on skin tests. Vitamin D Deficiency: Begin vitamin D supplementation daily. Elevated Liver Enzymes: Reassess liver function tests regularly. Consider an ultrasound if enzyme levels increase. Tobacco Use: Encourage cessation of vaping and Bidi usage, particularly due to throat irritation. Prediabetes: Maintain diet and exercise regime to prevent escalation to diabetes. Monitor glucose levels periodically. Lose weight PCOS: Continue monitoring for symptom management. Patient's instruction Use the inhaler consistently; keep it near your toothbrush. - Take vitamin D supplements daily as prescribed. - Use ibuprofen 400 mg with food as needed for pain. - Schedule allergy testing, particularly a skin test. Referral to store stocker placed - Abstain from vaping and Bidi to alleviate throat discomfort. - Continue regular exercise and maintain a balanced diet. - Return for a follow-up appointment in six months for reassessment. Discussion I discussed the management plans for asthma, emphasizing consistent use of the inhaler and incorporating the use of cetirizine to manage allergic symptoms. I explained the importance of continuing vitamin D supplementation due to deficiency. We reviewed the liver enzyme elevations, attributing these to possible fatty liver, but reassured the patient of the stability of these results. The need for further allergy testing, especially a skin test, was emphasized to clarify chronic allergic rhinitis triggers. For musculoskeletal pain, I recommended ibuprofen, highlighting the necessity of concurrent food intake to prevent gastrointestinal upset. And take it only if absolutely necessary. We also addressed cessation of vaping and use of Bidis to help reduce throat discomfort, suggesting it may be exacerbating throat irritation. I advised regular physical activity and maintaining a healthy diet to manage weight and glucose levels, given the history of prediabetes. 45 minutes spent in care of this patient including [id number] discussions Orders: Referrals Allergy & Immunology Referral R09.89 - Other specified symptoms and signs involving the circulatory and respiratory systems, Z91.09 - Other allergy status, other than to drugs and biological substances Medications: New cholecalciferol (vitamin D3) 25 mcg PO DAILY 90 caps 1RF 90 days Changed From ibuprofen 800 mg PO Q8H PRN 30 tabs 0RF pain To ibuprofen 400 mg PO ONCE PRN 90 tabs 0RF pain 90 days
[2024-04-05 10:42] VITALS: BP 122/74; PULSE 92; O2SAT 98; BMI 30.9
== END 2024-04-05 11:24 | disposition home or self-care (01) ==
PROVIDERS: PCP Internal Medicine; Visit Provider Internal Medicine
DX: R73.03 Prediabetes (principal); E66.9 Obesity, unspecified; Z68.30 Body mass index [BMI] 30.0-30.9, adult; Z91.09 Other allergy status, other than to drugs and biological substances; E28.2 Polycystic ovarian syndrome; Z72.0 Tobacco use

== ENCOUNTER → 2024-04-05 10:37 | Outpatient (BNVA) | payer SELFPAY | PROVIDERS: PCP Internal Medicine; Visit Provider Internal Medicine | DX: J45.909 Unspecified asthma, uncomplicated (principal); R09.89 Other specified symptoms and signs involving the circulatory and respiratory systems; R79.89 Other specified abnormal findings of blood chemistry; R73.03 Prediabetes; E28.2 Polycystic ovarian syndrome; E66.9 Obesity, unspecified; Z72.0 Tobacco use; Z91.09 Other allergy status, other than to drugs and biological substances | CPT/HCPCS: 99212 ==